=== PATIENT | female | born 1970 | race Caucasian/White ===

== ENCOUNTER 2020-12-16 19:23 | Inpatient (IN) | payer OTHER ==
[~2020-12-16] VITALS: Ht 167.6 cm; Wt 122.5 kg
[~2020-12-16 19:23] MED LIST: BUSPAR 5MG TABLE5 MG PO; CELEXA40 MG PO; MOBIC15 MG PO; TYLENOL W/CODEIN1 E1 PO
[2020-12-16 20:29] LABS: HEMOGLOBIN 11.3 gm/dl (12.3-15.3); RED BLOOD COUNT 4.25 M/UL (4.00-5.10); WHITE BLOOD COUNT 6.1 K/UL (4.5-11.0)
[2020-12-16 20:53] LABS: BUN/CREATININE RATIO 16 (0-10)
[2020-12-17 03:22] LABS: HEMOGLOBIN 10.6 gm/dl (12.3-15.3); RED BLOOD COUNT 4.08 M/UL (4.00-5.10)
[2020-12-17 03:33] LABS: WHITE BLOOD COUNT 4.3 K/UL (4.5-11.0)
[2020-12-17 03:34] LABS: BUN/CREATININE RATIO 18 (0-10)
[2020-12-18 14:09] LABS: RED BLOOD COUNT 3.84 M/UL (4.00-5.10)
[2020-12-18 14:11] LABS: WHITE BLOOD COUNT 8.6 K/UL (4.5-11.0)
[2020-12-18 14:36] LABS: BUN/CREATININE RATIO 22 (0-10)
[2020-12-19 02:49] LABS: HEMOGLOBIN 9.9 gm/dl (12.3-15.3); RED BLOOD COUNT 3.85 M/UL (4.00-5.10); WHITE BLOOD COUNT 8.1 K/UL (4.5-11.0)
[2020-12-19 03:06] LABS: BUN/CREATININE RATIO 22 (0-10)
[2020-12-20 02:57] LABS: HEMOGLOBIN 10.5 gm/dl (12.3-15.3); RED BLOOD COUNT 3.96 M/UL (4.00-5.10); WHITE BLOOD COUNT 6.1 K/UL (4.5-11.0)
[2020-12-20 03:19] LABS: BUN/CREATININE RATIO 18 (0-10)
[2020-12-20] MEDS ORDERED: DECADRON6 MG PO (11:28)
[2020-12-20] MEDS ORDERED: COMBIVENT RESPIM4 GM INH (11:28)
[2020-12-20] MEDS ORDERED: AZITHROMYCIN500 MG PO (11:28)
[2020-12-20] MEDS ORDERED: OMNICEF 300 MG300 MG PO (11:28)
[2020-12-20] MEDS ORDERED: NORVASC5 MG PO (11:46)
== END 2020-12-20 18:45 | disposition home or self-care (01) | DRG 871 ==
LOC: ER1 19:23 → CDU 20:44 → PROG CARE 20:44
PROVIDERS: Emergency Medicine; Internal Medicine; ADMIT Internal Medicine
PROC: XW13325 Transfusion of Convalescent Plasma (Nonautologous) into Peripheral Vein, Percutaneous Approach, New Technology Group 5 (ICD-10-PCS; principal; 2020-12-17)
PROC: 3E0333Z Introduction of Anti-inflammatory into Peripheral Vein, Percutaneous Approach (ICD-10-PCS; 2020-12-17)
PROC: 8E0ZXY6 Isolation (ICD-10-PCS; 2020-12-17)
PROC: XW033E5 Introduction of Remdesivir Anti-infective into Peripheral Vein, Percutaneous Approach, New Technology Group 5 (ICD-10-PCS; 2020-12-17)
DX: A41.89 Other specified sepsis (principal); U07.1 COVID-19; J12.82 Pneumonia due to coronavirus disease 2019; J96.01 Acute respiratory failure with hypoxia; J15.9 Unspecified bacterial pneumonia; Z68.41 Body mass index [BMI] 40.0-44.9, adult; F41.9 Anxiety disorder, unspecified; F32.9 Major depressive disorder, single episode, unspecified; D64.9 Anemia, unspecified; E66.01 Morbid (severe) obesity due to excess calories; E87.6 Hypokalemia; Z90.49 Acquired absence of other specified parts of digestive tract; Z90.710 Acquired absence of both cervix and uterus; Z82.49 Family history of ischemic heart disease and other diseases of the circulatory system
CPT/HCPCS: 36415; 36600; 71045; 80048; 80053; 81001; 82550; 82553; 82803; 83605; 83874; 83880; 84132; 84484; 85025; 85027; 85379; 86140; 86900; 86901; 86927; 87040; 94640; 94664; 94760; 96374; 96375; 99285; J0360; J0696; J1100; J1650; J2405; J7030